=== PATIENT | female | born 1995 | race Caucasian/White ===

== ENCOUNTER 2017-11-23 22:35 | Emergency (ER) | payer MEDICAID ==
[2017-11-23 22:44] VITALS: BP 119/79
[2017-11-23] MEDS ORDERED: SIMETHICONE 80 MG TAB CHEW PO ONE (22:49)
[2017-11-23] MEDS ORDERED: DICYCLOMINE 10 MG CAP PO ONE (22:49)
--- NOTE | 2017-11-23 22:52 | EDPHY ---
H & P Stated Complaint: only small hard BM for last month, PCP has prescibed but no help Source: Patient Exam Limitations: No limitations - Personal History LMP (Females 10-55): IUD In Place Current Tetanus Diphtheria and Acellular Pertussis (TDAP): Yes - Medical/Surgical History Hx Asthma: No Hx Chronic Respiratory Disease: No Hx Diabetes: Yes Hx Cardiac Disease: No Hx Renal Disease: No Hx Cirrhosis: No Hx Alcoholism: No Hx HIV/AIDS: No Hx Splenectomy or Spleen Trauma: No Other PMH: diabetes type 1/hypothyroid/gluten intolerance - Social History Smoking Status: Former smoker Time Seen by Provider: 11/23/17 22:49 HPI/ROS: HPI: This is a 22-year-old female who presents with Chief Complaint: only small hard BM for last month, PCP has prescibed but no help Location: Abdomen Quality: Constant Duration: Few weeks Signs and Symptoms: no fever, no nausea, no vomiting, no hematemesis, no blood in stool, no abdominal bloating, no diarrhea, no back pain, no urinary symptoms , no vaginal bleeding/discharge, no indigestion, no chest pain, no shortness of breath Timing: Gradually worse Severity: Moderate Context: Patient presents with not able to have a good bowel movement in over 2 -3 weeks. Patient reports she is only eating 1 meal a day for the last few days as she feels early satiety. She reports that she has been having gradual increased abdominal bloating. Patient denies any vomiting or nausea. She has been trying [id number] homeopathic regimen without any relief. She denies any blood in her stool/hematemesis/fever. She is passing gas from below. Patient reports that she has an IUD and does not get regular menses. No history of abdominal surgery. Modifying Factors: See above Comment: ROS: see HPI Constitutional: No fever, no chills, no weight loss Eyes: No blurred vision Respiratory: No shortness of breath, no cough Cardiovascular: No chest pain, no palpitations Gastrointestinal: No nausea, no vomiting, no diarrhea, no hematemesis, no blood in stool Genitourinary: No dysuria, no blood in urine Extremities: No myalgias, no edema Neurologic: No weakness, no numbness Skin: No rashes, no petechiae Hematologic: No bruising, no bleeding MEDICAL/SURGICAL/SOCIAL HISTORY: Medical history: diabetes type 1/hypothyroid/gluten intolerance Surgical history: Denies Social history: Student. Performing arts dancer. Family history noncontributory. CONSTITUTIONAL: Extremely well-appearing young adult white female, awake and alert, no obvious distress HEENT: Atraumatic and normocephalic, PERRL, EOMI. Nares patent; no rhinorrhea; no nasal mucosal edema. Tympanic membranes clear. Oropharynx clear, no exudate and moist pink mucosa. Airway patent. No lymphadenopathy. No meningismus. Cardiovascular: Normal S1/S2, regular rate, regular rhythm, without murmur rub or gallop. PULMONARY/CHEST: Symmetrical and nontender. Clear to auscultation bilaterally. Good air movement. No accessory muscle usage. ABDOMEN: Soft, nondistended, nontender, no rebound, no guarding, no peritoneal signs, no masses or organomegaly. No CVAT. Bowel sounds heard x4 quadrants. EXTREMITIES: 2/2 pulses, strength 5/5, no deformities, no clubbing, no cyanosis or edema. NEUROLOGICAL: no focal neuro deficits. GCS 15. SKIN: Warm and dry, no erythema. no rash. Good capillary refill. (Keena Herndon) Constitutional: Initial Vital Signs Temperature (C) 37.1 C 11/23/17 22:41 Heart Rate 75 11/23/17 22:41 Respiratory Rate 16 11/23/17 22:41 Blood Pressure 119/79 11/23/17 22:41 O2 Sat (%) 96 11/23/17 22:41 O2 Delivery Mode Room Air Allergies/Adverse Reactions: gluten Allergy (Verified 03/25/15 09:16) Sulfa (Sulfonamide Antibiotics) Allergy (Verified 10/12/14 14:20) Home Medications: Medication Instructions Recorded Levothyroxine 10/12/14 novoLOG 10/12/14 Magnesium Citrate [Magnesium 300 ml PO ONCE #1 bottle 11/23/17 Citrate 300 ml (*)] Tresiba Flextouch U-100 11/23/17 Medical Decision Making - Diagnostics Imaging Results: Imaging Impressions Abdomen X-Ray 11/23/17 22:45 Impression: Constipation. ED Course/Re-evaluation: KUB, p.o. Bentyl 10 mg, PO simethicone chewable tablets ordered upon arrival. Abdomen is soft and nontender with bowel sounds. Doubt surgical process. 2319: Abdominal x-ray shows moderate stool burden; nonobstructive bowel gas pattern. Patient given MiraLax and glycerin suppository in the emergency room. She was given a prescription for magnesium citrate and other supportive measures. This patient was seen under the supervision of my secondary supervising physician. I evaluated care for this patient independently. (Keena Herndon) PHYSICIAN DOCUMENTATION: The patient was evaluated and managed by the Physician Animal Assisted Therapist. My co- signature indicates that I have reviewed this chart and I agree with the findings and plan of care as documented. I am the secondary supervising physician. (Karen Mann) Differential Diagnosis: Differential diagnosis includes but is not limited to constipation, ileus, obstipation, small-bowel obstruction. (Keena Herndon) - Data Points Medications Given: Discontinued Medications Dicyclomine HCl (Bentyl) 10 mg PO EDNOW ONE Stop: 11/23/17 22:50 Last Admin: 11/23/17 22:53 Dose: 10 mg Glycerin (Glycerin Adult) 1 each TN ONCE ONE Stop: 11/23/17 23:13 Last Admin: 11/23/17 23:19 Dose: 1 each Polyethylene Glycol (Miralax) 17 gm PO EDNOW ONE Stop: 11/23/17 23:13 Last Admin: 11/23/17 23:19 Dose: 17 gm Simethicone (Mylicon) 80 mg PO EDNOW ONE Stop: 11/23/17 22:50 Last Admin: 11/23/17 22:53 Dose: 80 mg Departure - Departure Disposition: Home, Routine, Self-Care Clinical Impression: Constipation Condition: Good Instructions: Constipation (ED) Additional Instructions: Consume a minimum of 10-12 glasses of water or electrolyte fluid replacement drinks that include Gatorade, Powerade, Pedialyte. Eat a liquid diet for the next 24-48 hours and then slowly advance as tolerated. Take the MiraLax with 8 oz of Gatorade or juice and place glycerin suppository upon returning home from the emergency room. Take magnesium citrate 150 mL tomorrow. If no bowel movement in 6 hr, take the other 150 mL of magnesium citrate. Use [id number] Simethicone or Mylicon every 6 hr as needed for abdominal gas pain. Perform low-impact and walking activities until constipation has been resolved. Referrals: Barndon Hanley MD [Primary Care Provider] - As per Instructions Prescriptions: Magnesium Citrate [Magnesium Citrate 300 ml (*)] 300 ml PO ONCE #1 bottle
[2017-11-23] MEDS ORDERED: GLYCERIN ADULT 1 EACH SUPP PR ONE (23:12)
[2017-11-23] MEDS ORDERED: POLYETHYLENE GLYCOL 3350 17 GM PKT PO ONE (23:12)
== END 2017-11-23 23:35 | disposition home or self-care (01) ==
DX: K59.00 Constipation, unspecified (principal); E10.9 Type 1 diabetes mellitus without complications; Z87.891 Personal history of nicotine dependence

== ENCOUNTER → 2018-01-04 | Outpatient (CLI) | payer MEDICAID | LOC: FIMAGING 14:22 | PROVIDERS: ATTEND Family Medicine | DX: R10.31 Right lower quadrant pain (principal); Z97.5 Presence of (intrauterine) contraceptive device ==

== ENCOUNTER 2018-01-17 09:34 | Emergency (ER) | payer MEDICAID ==
[2018-01-17] MEDS ORDERED: ONDANSETRON 4 MG/2 ML VIAL IVP ONE (10:12)
[2018-01-17] MEDS ORDERED: NS 1,000 ML IV ONE ×2 (10:12→11:09)
[2018-01-17] MEDS ORDERED: PROMETHAZINE HCL 25 MG/ML INJ IVP ONE (10:12)
[2018-01-17] MEDS ORDERED: METOCLOPRAMIDE 10 MG/2 ML VIAL IVP ONE (10:12)
--- NOTE | 2018-01-17 10:23 | EDPHY ---
General - History Smoking Status: Former smoker Time Seen by Provider: 01/17/18 10:16 Narrative: CHIEF COMPLAINT: Abdominal pain, nausea, dizziness HISTORY OF PRESENT ILLNESS: Patient presents with complaints of abdominal pain, dizziness nausea dehydration weakness. Symptoms have been present for several months, starting October. This started after returning home from [place]. It started as generalized abdominal discomfort with some constipation. She has been evaluated at multiple facilities and diagnosed with constipation. She has had a CT scan with a reported colitis that was treated with Cipro and Flagyl. She had ultrasounds of the pelvis and appendix or both normal appearance with no appendicitis, cyst or torsion. She has increasing pain, weakness, dizziness and lightheadedness the last 2 days. She has had vomiting over the weekend. There is no blood in the emesis or stool. No fever. No trauma or injury. No other associated complaints or modifying factors. REVIEW OF SYSTEMS: Ten systems reviewed and are negative unless otherwise noted in the HPI PCP: Dr. Brandon Hanley SPECIALISTS: None PAST MEDICAL HISTORY: Constipation. Insulin-dependent diabetic, hypothyroid PAST SURGICAL HISTORY: No surgical history SOCIAL HISTORY: Nonsmoker. Lives and works here independently. FAMILY HISTORY: Noncontributory EXAMINATION General Appearance: Alert, no distress Head: normocephalic, atraumatic Eyes: Pupils equal and round, no conjunctival pallor or injection ENT, Mouth: Mucous membranes moist Neck: Normal inspection, supple, non-tender Respiratory: Lungs are clear to auscultation Cardiovascular: Regular rate and rhythm Gastrointestinal: Abdomen is soft and nondistended. There is generalized tenderness that is mild. No guarding. No rigidity. No palpable mass. No CVA tenderness Back: non-tender, no bony abnormalities Neurological: A&O, nonfocal, normal gait Skin: Warm and dry, no rash no petechiae or purpura Extremities: Nontender, no pedal edema Psychiatric: Mood and affect normal DIFFERENTIAL DIAGNOSES: Including but not limited to cholecystitis, cholelithiasis, gastritis, peptic ulcer disease, enteritis, colitis, irritable bowel, inflammatory bowel, gastroparesis MDM: 10:15 a.m. Three weeks of generalized abdominal discomfort with several days of vomiting, weakness and fatigue. Patient has ongoing workup for this with no formal diagnosis. She is a diabetic. Her abdominal exam is benign. Vital signs are within normal limits. She is in no acute distress. We will obtain her recent medical records from December at [facility]. I will review her records here at [facility]. Laboratory studies will be obtained. I have ordered nausea medications and IV fluid 11:30 a.m. Patient re-evaluated. She sleeping but wakes easily. She is starting to feel better. Laboratory studies are unremarkable with no signs of infection, bleeding or abnormalities of the chemistry 12:30 p.m. Patient re-evaluated. She has provided a stool sample in the GI pathogen panel is pending. This was ordered due to chronic constipation with intermittent diarrhea. She is feeling significantly better and would like to go home. I do feel this is reasonable. Her abdominal exam remains benign. She has had recent CT scan, pelvic ultrasound, appendix ultrasound that are all unremarkable. She does not have a surgical abdomen or warrant any further imaging at this time. I will discharge her with symptomatic medications and recommend a GI referral. She will contact her primary care physician to facilitate this. We discussed ED precautions for vomiting, return of abdominal pain, fever. She is comfortable this plan and discharged home in stable condition. 1:15 p.m. Patient's GI pathogen panel has returned with no organisms detected. I have contacted her notified her of this. SUPERVISION: Patient was independently examined, but I discussed the case with my secondary supervising physician Dr. Lechuga ([facility]) Medical Decision Making: I did not see this patient while she was in the emergency department. However her care was discussed with the PA while the patient was in the department. I agree with treatment plan and management (Michael Lechuga) - Objective Vital Signs: Initial Vital Signs Temperature (C) 97.3 F 01/17/18 09:38 Heart Rate 77 01/17/18 09:38 Respiratory Rate 17 01/17/18 09:38 Blood Pressure 93/60 L 01/17/18 09:38 O2 Sat (%) 98 01/17/18 09:38 O2 Delivery Mode Room Air Allergies/Adverse Reactions: gluten Allergy (Verified 01/17/18 09:37) Sulfa (Sulfonamide Antibiotics) Allergy (Verified 01/17/18 09:37) Home Medications: Medication Instructions Recorded Levothyroxine 10/12/14 novoLOG 10/12/14 Tresiba Flextouch U-100 11/23/17 Famotidine [Pepcid 20 MG (*)] 20 mg PO BID #28 tab 01/17/18 Metoclopramide [Reglan 10 mg tab 10 mg PO Q8 PRN #12 tab 01/17/18 (*)] Promethazine HCl [Phenergan 25mg 25 mg PO Q8 PRN #12 tab 01/17/18 (*)] oxyCODONE HCL/ACETAMINOPHEN 1 each PO Q4-6PRN PRN #7 tablet 01/17/18 [Percocet 5-325 mg Tablet] Laboratory Results: Laboratory Results 01/17/18 10:20 01/17/18 10:20 01/17/18 01/17/18 01/17/18 10:30 10:20 10:20 WBC RBC Hgb Hct MCV MCH MCHC RDW Plt Count MPV Neut % (Auto) Lymph % (Auto) [place] % (Auto) Eos % (Auto) Baso % (Auto) Nucleat RBC Rel Count Absolute Neuts (auto) Absolute Lymphs (auto) Absolute Monos (auto) Absolute Eos (auto) Absolute Basos (auto) Absolute Nucleated RBC Immature Gran % Immature Gran # Sodium 139 mEq/L mEq/L (135-145) Potassium 3.9 mEq/L mEq/L (3.3-5.0) Chloride 104 mEq/L mEq/L (97-110) Carbon Dioxide 27 mEq/l mEq/l (22-31) Anion Gap 8 mEq/L mEq/L (8-16) BUN 7 mg/dL mg/dL (7-23) Creatinine 0.5 mg/dL L mg/dL (0.6-1.0) Estimated GFR > 60 Glucose 198 mg/dL H mg/dL (70-100) Calcium 9.3 mg/dL mg/dL (8.5-10.4) Total Bilirubin 0.7 mg/dL mg/dL (0.1-1.4) Conjugated Bilirubin 0.2 mg/dL mg/dL (0.0-0.5) Unconjugated Bilirubin 0.5 mg/dL mg/dL (0.0-1.1) AST 16 IU/L IU/L (14-46) ALT 21 IU/L IU/L (9-52) Alkaline Phosphatase 55 IU/L IU/L (38-126) Total Protein 6.1 g/dL L g/dL (6.3-8.2) Albumin 3.7 g/dL g/dL (3.5-5.0) Lipase 22 IU/L L IU/L (23-300) Beta HCG, Qual NEGATIVE Urine Color PALE YELLOW Urine Appearance CLEAR Urine pH 8.0 H (5.0-7.5) Ur Specific [place] 1.003 (1.002-1.030) Urine Protein NEGATIVE (NEGATIVE) Urine Ketones NEGATIVE (NEGATIVE) Urine Blood NEGATIVE (NEGATIVE) Urine Nitrate NEGATIVE (NEGATIVE) Urine Bilirubin NEGATIVE (NEGATIVE) Urine Urobilinogen NEGATIVE EU EU (0.2-1.0) Ur Leukocyte Esterase NEGATIVE (NEGATIVE) Urine RBC NONE SEEN /hpf /hpf (0-3) Urine WBC 0-1 /hpf /hpf (0-3) Ur Epithelial Cells TRACE /lpf /lpf (NONE-1+) Urine Bacteria TRACE /hpf H /hpf (NONE SEEN) Urine Glucose NEGATIVE (NEGATIVE) 01/17/18 10:20 WBC 4.79 10^3/uL 10^3/uL (3.80-9.50) RBC 4.08 10^6/uL L 10^6/uL (4.18-5.33) Hgb 13.2 g/dL g/dL (12.6-16.3) Hct 38.6 % % (38.0-47.0) MCV 94.6 fL fL (81.5-99.8) MCH 32.4 pg pg (27.9-34.1) MCHC 34.2 g/dL g/dL (32.4-36.7) RDW 12.1 % % (11.5-15.2) Plt Count 217 10^3/uL 10^3/uL (150-400) MPV 9.7 fL fL (8.7-11.7) Neut % (Auto) 49.1 % % (39.3-74.2) Lymph % (Auto) 37.4 % % (15.0-45.0) [place] % (Auto) 9.2 % % (4.5-13.0) Eos % (Auto) 3.3 % % (0.6-7.6) Baso % (Auto) 0.8 % % (0.3-1.7) Nucleat RBC Rel Count 0.0 % % (0.0-0.2) Absolute Neuts (auto) 2.35 10^3/uL 10^3/uL (1.70-6.50) Absolute Lymphs (auto) 1.79 10^3/uL 10^3/uL (1.00-3.00) Absolute Monos (auto) 0.44 10^3/uL 10^3/uL (0.30-0.80) Absolute Eos (auto) 0.16 10^3/uL 10^3/uL (0.03-0.40) Absolute Basos (auto) 0.04 10^3/uL 10^3/uL (0.02-0.10) Absolute Nucleated RBC 0.00 10^3/uL 10^3/uL (0-0.01) Immature Gran % 0.2 % % (0.0-1.1) Immature Gran # 0.01 10^3/uL 10^3/uL (0.00-0.10) Sodium Potassium Chloride Carbon Dioxide Anion Gap BUN Creatinine Estimated GFR Glucose Calcium Total Bilirubin Conjugated Bilirubin Unconjugated Bilirubin AST ALT Alkaline Phosphatase Total Protein Albumin Lipase Beta HCG, Qual Urine Color Urine Appearance Urine pH Ur Specific [place] Urine Protein Urine Ketones Urine Blood Urine Nitrate Urine Bilirubin Urine Urobilinogen Ur Leukocyte Esterase Urine RBC Urine WBC Ur Epithelial Cells Urine Bacteria Urine Glucose Microbiology Results: MICROBIOLOGY 01/17/18 10:50 Stool Gastrointestinal Tract Panel (PCR) - Final No Organism Detected Medications Given: Discontinued Medications Sodium Chloride (Ns) 1,000 mls @ 0 mls/hr IV EDNOW ONE; Wide Open PRN Reason: Protocol Stop: 01/17/18 10:13 Last Admin: 01/17/18 10:40 Dose: 1,000 mls Sodium Chloride (Ns) 1,000 mls @ 0 mls/hr IV EDNOW ONE; Wide Open PRN Reason: Protocol Stop: 01/17/18 11:10 Last Admin: 01/17/18 11:09 Dose: 1,000 mls Metoclopramide HCl (Reglan Injection) 10 mg IVP EDNOW ONE Stop: 01/17/18 10:13 Last Admin: 01/17/18 10:40 Dose: 10 mg Ondansetron HCl (Zofran) 4 mg IVP EDNOW ONE Stop: 01/17/18 10:13 Last Admin: 01/17/18 10:40 Dose: 4 mg Promethazine HCl (Phenergan) 12.5 mg IVP EDNOW ONE Stop: 01/17/18 10:13 Last Admin: 01/17/18 10:40 Dose: 12.5 mg Departure - Departure Disposition: Home, Routine, Self-Care Clinical Impression: Nausea & vomiting Qualifiers: Vomiting type: unspecified Vomiting Intractability: non-intractable Qualified Code(s): R11.2 - Nausea with vomiting, unspecified Abdominal pain Qualifiers: Abdominal location: generalized Qualified Code(s): R10.84 - Generalized abdominal pain Condition: Good Instructions: Acute Nausea and Vomiting (ED), Acute Abdominal Pain (ED) Additional Instructions: 1. Contact primary care physician to be seen and to discuss referral to manager monitoring 2. Medications as prescribed as needed 3. Return to emergency department for return of pain, fever, vomiting Referrals: Brandon Hanley MD [Primary Care Provider] - As per Instructions Carolina Yoder MD [Medical Doctor] - As per Instructions Stand Alone Forms: Work Excuse Prescriptions: Famotidine [Pepcid 20 MG (*)] 20 mg PO BID #28 tab Metoclopramide [Reglan 10 mg tab (*)] 10 mg PO Q8 PRN #12 tab PRN Reason: Headache oxyCODONE HCL/ACETAMINOPHEN [Percocet 5-325 mg Tablet] 1 each PO Q4-6PRN PRN #7 tablet PRN Reason: Pain, Breakthrough Promethazine HCl [Phenergan 25mg (*)] 25 mg PO Q8 PRN #12 tab PRN Reason: Nausea/Vomiting, Use 1st
[2018-01-17 10:29] LABS: PLATELET COUNT 217 10^3/uL (150-400)
[2018-01-17 12:49] VITALS: BP 96/51
== END 2018-01-17 13:13 | disposition home or self-care (01) ==
DX: R11.2 Nausea with vomiting, unspecified (principal); R10.84 Generalized abdominal pain; E86.9 Volume depletion, unspecified; E11.9 Type 2 diabetes mellitus without complications; Z79.4 Long term (current) use of insulin
CPT/HCPCS: 96374; J2405; J2550; J2765